=== PATIENT | female | born 1955 | race Caucasian/White ===

== ENCOUNTER → 2019-01-05 18:13 | Outpatient (CLI) | payer MEDICAID ==
[2015-05-16 06:04] VITALS: BMI 20.2
[~2019-01-05 18:13] MED LIST: BAYER ASPIRIN325 MG PO; BENADRYL25 MG PO; KLONOPIN1 MG PO; LOMOTIL TABLET1 TAB PO; MACRODANTIN100 MG PO; NORCO 7.5/325 T1 TA1 PO; NORVASC10 MG PO; PAMELOR75 MG PO; PHENERGAN25 M1 PO; PRILOSEC20 MG PO; SOMA350 MG PO; VENTOLIN HFA18 GM INH; VITAMIN B-121000 MCG PO
[2019-01-05 18:31] LABS: BASOPHILS 0.3 % (0-2); EOSINOPHILS 1.1 % (0-7); HEMATOCRIT 44.9 % (36.0-48.0); HEMOGLOBIN 15.6 g/dL (12-16); IMMATURE GRANULOCYTES 0.1 % (0-5); LYMPHOCYTES 36.6 % (15-50); MCH 32.9 pg (26.0-34.0); MCHC 34.7 g/dL (31.0-37.0); MCV 94.7 fL (80.0-100.0); MEAN PLATELET VOLUME 10.4 fL (7.4-10.4); MONOCYTES 8.1 % (2-11); NEUTROPHILS 53.8 % (40-80); PLATELET COUNT 256 10x3/uL (130-400); RBC 4.74 10x6/uL (4.00-5.40); RDW 13.1 % (11.5-14.5); WBC 7.4 10x3/uL (4.8-10.8)
[2019-01-05 19:01] LABS: ALBUMIN 4.1 g/dL (3.4-5.0); ANION GAP 19.2 mmol/L (8-16); BILIRUBIN - TOTAL 0.41 mg/dL (0.2-1.3); CALCIUM 9.3 mg/dL (8.5-10.1); CARBON DIOXIDE 24.5 mmol/L (21.0-32.0); POTASSIUM - SERUM 4.7 mmol/L (3.5-5.1); PROTEIN - SERUM 7.6 g/dL (6.4-8.2)
== END | disposition home or self-care (01) ==
LOC: D.LABREF 18:13
PROVIDERS: ATTEND Legal Medicine
DX: D64.9 Anemia, unspecified (principal)